=== PATIENT | female | born 1970 | race Caucasian/White ===

== ENCOUNTER 2020-10-16 15:19 | Emergency (ER) | payer MEDICAID ==
[~2020-10-16] VITALS: Ht 162.6 cm; Wt 71.5 kg
[2020-10-16 15:33] VITALS: BP 130/79
[2020-10-16] MEDS ORDERED: ONDANSETRON ODT 4 MG ONE (16:20)
[2020-10-16] MEDS ORDERED: LORazepam 1MG TABLET ONE (16:20)
[2020-10-16] MEDS ORDERED: NEOSPORIN OINT. PKT 1 PACKET ONE (16:21)
[2020-10-16] MEDS ORDERED: LORazepam 1MG TABLET PO ONE (16:30)
[2020-10-16] MEDS ORDERED: ONDANSETRON ODT 4 MG PO ONE (16:30)
== END 2020-10-16 16:41 | disposition home or self-care (01) ==
LOC: ED 15:53
DX: F11.23 Opioid dependence with withdrawal (principal); R10.9 Unspecified abdominal pain; R19.7 Diarrhea, unspecified; R11.0 Nausea
CPT/HCPCS: 99283; Q0162